=== PATIENT | female | born 1945 | race Two or more races ===

== ENCOUNTER 2018-06-26 07:08 | Inpatient (IN) | payer MEDICARE, MEDICAID ==
[2018-06-26] VITALS (11 sets, daily range): BP systolic 108–137; BP diastolic 65–90
[~2018-06-26] VITALS: Ht 154.9 cm; Wt 81.2 kg
[~2018-06-26 07:08] MED LIST: HYDR-4354 PO
--- NOTE | 2018-06-26 08:00 | NUR ---
MS RN NOTES PATIENT ADMITTED TO UNIT, ARRIVED AMBULATORY. AWAKE, ALERT AND ORIENTED X 4, VERBALLY RESPONSIVE AND RESPONDS TO VERBAL AND TACTILE STIMULI. BREATHING EVEN AND UNLABORED. NO CHANGES IN LOC NOTED. DENIES ANY PAIN OR DISCOMFORT. PATIENT FOR DAY SURGERY, FOR RIGHT KNEE ARTHROPLASTY WITH DR. BUSH. PATIENT VERBALIZED SHE HAS BEEN NPO SINCE LAST NIGHT. LAST BOWEL MOVEMENT LAST NIGHT. SKIN ASSESSMENT DONE, SKIN CLEAR, NO SKIN BREAKDOWN NOTED. VERIFIED INFORM CONSENT OBTAINED BY MD FROM PATIENT AND WITNESSED BY LICENSED STAFF. WILL CONTINUE TO MONITOR
[2018-06-26] MEDS ORDERED: TRANEXAMIC ACID 3,000 MG in SODIUM CHLORIDE IRRIG SOLUTION 70 ML IR ONE (08:30)
--- NOTE | 2018-06-26 08:30 | NUR ---
MS RN NOTES PATIENT WITH PRE-OP ORDERS FROM DR. BUSH, INCLUDING TYLENOL 650MG, OXYCODONE 10MG, CELEBREX 200MG. TO BE TAKEN PO WITH SMALL SIP OF WATER AFTER CONSENTS ARE GIVEN AND SIGNED. ORDERS NOTED AND CARRIED OUT. PATIENT AWARE AND VERBALIZED UNDERSTANDING. WILL CONTINUE TO MONITOR
--- NOTE | 2018-06-26 09:00 | NUR ---
MS RN NOTES LFA g22, WITH GOOD BLOOD BACKFLOW, SECURED WITH TAGADERM. FLUSHING WELL. WILL CONTINUE TO MONITOR
[2018-06-26] MEDS ORDERED: FESO4TAB PO (09:15)
[2018-06-26] MEDS ORDERED: LEVO50TA8 PO (09:15)
[2018-06-26] MEDS ORDERED: CELECOXIB 100 MG CAPSULE PO ONE (09:30)
[2018-06-26] MEDS ORDERED: oxyCODONE IR immediate release 5 MG PO ONE (09:30)
[2018-06-26] MEDS ORDERED: ACETAMINOPHEN 325 MG TABLET PO ONE (09:30)
[2018-06-26 10:22] LABS: BASOPHILS # (AUTO) 0.1 /CMM (0.0-0.2); BASOPHILS % (AUTO) 1.4 % (0.0-2.0); EOSINOPHILS % (AUTO) 7.9 % (0.0-6.0); HEMATOCRIT 37 % (33-45); HEMOGLOBIN 12.9 g/dL (11.5-14.8); LYMPHOCYTES # (AUTO) 2.8 /CMM (0.8-4.8); LYMPHOCYTES % (AUTO) 45.1 % (20.0-44.0); MEAN CORPUSCULAR HGB CONC 34 g/dl (31.0-36.0); MEAN CORPUSCULAR VOLUME 95 fL (82-100); MONOCYTES # (AUTO) 0.6 /CMM (0.1-1.30); MONOCYTES % (AUTO) 9.1 % (2.0-12.0); NEUTROPHILS # (AUTO) 2.3 /CMM (1.8-8.9); NEUTROPHILS % (AUTO) 36.5 % (43.0-81.0); PLATELET COUNT (AUTO) 353 /CMM (150-450); RED BLOOD CELL COUNT(AUTO) 3.95 MIL/uL (4.0-5.2); WHITE BLOOD COUNT (AUTO) 6.2 K/uL (4.3-11.0)
[2018-06-26 10:32] LABS: ALANINE AMINOTRANSFERASE 27 U/L (12-78); ALBUMIN 3.8 g/dL (3.4-5.0); ALKALINE PHOSPHATASE 79 U/L (46-116); ASPARTATE AMINOTRANSFERASE 19 U/L (15-37); BILIRUBIN,TOTAL 0.5 mg/dL (0.2-1.0); CALCIUM, SERUM 9.3 mg/dL (8.5-10.1); CARBON DIOXIDE 30 mmol/L (21-32); CHLORIDE 106 mmol/L (98-107); CREATININE 0.8 mg/dL (0.6-1.3); GLUCOSE 95 mg/dL (74-106); POTASSIUM 4.2 mmol/L (3.5-5.1); SODIUM SERUM 143 mmol/L (136-145); TOTAL PROTEIN, SERUM 7.6 g/dL (6.4-8.2); UREA NITROGEN, BLOOD 17 mg/dL (7-18)
[2018-06-26] MEDS ORDERED: CLINDAMYCIN 900 MG/6 ML VIAL ONE (10:46)
[2018-06-26] MEDS ORDERED: BUPIVACAINE 0.5 % PF 150 MG/30 ML VIAL ONE (12:12)
[2018-06-26] MEDS ORDERED: HYDROMORPHONE INJ 2 MG/ML DISP.SYRIN ONE ×2 (12:54→13:44)
[2018-06-26] MEDS ORDERED: MIDAZOLAM HCL 2 MG/2ML VIAL ONE (14:00)
[2018-06-26] MEDS ORDERED: HYDROCODONE/APAP 5/325MG 1 EACH TABLET PO PRN ×2 (14:30→17:00)
[2018-06-26] MEDS ORDERED: SENNOSIDES 8.6 MG TABLET PO PRN (14:30)
[2018-06-26] MEDS ORDERED: DOCUSATE SODIUM 250 MG CAPSULE PO PRN (14:30)
[2018-06-26] MEDS ORDERED: HYDROMORPHONE 1 MG/1 ML DISP.SYRIN IV PRN (14:30)
[2018-06-26] MEDS ORDERED: ANCEF 1 GM/50 ML D5W IV SCH ×2 (14:30)
[2018-06-26] MEDS ORDERED: ACETAMINOPHEN 325 MG TABLET PO PRN ×2 (14:30→17:00)
[2018-06-26] MEDS ORDERED: IV LR 1000 ML 1,000 ML IV PRN (14:30)
[2018-06-26] MEDS ORDERED: BISACODYL SUPP (10 MG) 10 MG/SUPP.RECT SUPP.RECT RC PRN ×2 (14:30→15:30)
[2018-06-26] MEDS ORDERED: ZOLPIDEM TARTRATE 5 MG TABLET PO PRN ×2 (14:30→17:00)
--- NOTE | 2018-06-26 15:10 | NUR ---
RN NOTES PATIENT CAME BACK TO UNIT AT 1500, REPORT RECEIVED FROM EDNA GODDARD. PATIENT AWAKE, ALERT AND ORIENTED X 4, SLEEPY, NO CHANGES IN LOC NOTED AT THIS TIME. SCD PUMPS IN PLACE. IV INTACT AND PATENT. PATIENT TO BE UNDER TELEMETRY AND CONTINUOUS PULSE OX X 24 HOURS. ORDER NOTED AND CARRIED OUT. SEMICONDUCTOR PACKAGES SEALER PLACED, NSR 70'S. O2 SAT 100% IN 2L/MIN VIA NC. WILL CONTINUE TO MONITOR. BED LOCKED AND IN LOW POSITION. BILATERAL UPPER SIDE RAILS UP AND LOCKED. CALL LIGHT WITHIN EASY REACH
--- NOTE | 2018-06-26 15:22 | NUR ---
MS RN NOTES MD MADE AWARE OF PATIENT ARRIVAL TO UNIT.
[2018-06-26] MEDS ORDERED: MAG HYDROX/AL HYDROX/SIMETH 30 ML UDC PO PRN ×2 (15:30→17:00)
[2018-06-26] MEDS ORDERED: diphenhydrAMINE HCL 25 MG CAPSULE PO PRN (15:30)
[2018-06-26] MEDS ORDERED: ONDANSETRON HCL/PF 4 MG/2 ML VIAL IV PRN (15:30)
[2018-06-26] MEDS ORDERED: CLONIDINE HCL 0.1 MG TABLET PO PRN (15:30)
[2018-06-26] MEDS ORDERED: HYDROMORPHONE 1 MG/1 ML DISP.SYRIN SQ PRN (15:30)
[2018-06-26] MEDS ORDERED: BUTALB/APAP/CAFFEINE 1 EACH TABLET PO PRN (15:30)
[2018-06-26] MEDS ORDERED: MENTHOL/CETYLPYRD (CEPACOL) 1 LOZ LOZENGE PO PRN (15:30)
[2018-06-26] MEDS: HYDROMORPHONE 1 MG/1 ML DISP.SYRIN SQ PRN ×2 (15:35→20:29)
--- NOTE | 2018-06-26 15:46 | NUR ---
MS RN NOTES PATIENT WITH C/O PAIN LEVEL OF 7/10 ON RIGHT KNEE. PRIOR TO GIVING NORCO 10/325, DR. GONSALVES CAME AND SEEN PATIENT. WITH NEW ORDERS FOR DILAUDID 0.[address] GONSALVES MADE AWARE OF NORCO ADMINISTRATION AND DR. GONSALVES VERBALIZED TO HOLD NORCO FOR NOW AND GIVE DILAUDID 0.5 MG SQ, MAY GIVE NORCO AFTER 1 HOUR IF PAIN PERSISTS. DR. GONSALVES MADE AWARE THAT PATIENT HAD DILAUDID APPROXIMATELY [address] GONSALVES VERBALIZED THAT ITS OK FOR PATIENT TO HAVE DILAUDID NOW. DILAUDID ADMINISTERED ORDERED. WILL CONTINUE TO MONITOR
[2018-06-26] MEDS ORDERED: ONDANSETRON HCL/PF 4 MG/2 ML VIAL IVP PRN (17:00)
[2018-06-26] MEDS ORDERED: Z GUARD REMEDY 2 OZ OINT TP PRN (17:00)
[2018-06-26] MEDS ORDERED: MAGNESIUM HYDROXIDE 30 ML UDC PO PRN (17:00)
[2018-06-26] MEDS: CLINDAMYCIN 600 MG in IV D5W 50 ML IV SCH (17:18)
[2018-06-26] MEDS: DOCUSATE SODIUM 100 MG CAPSULE PO SCH (17:18)
[2018-06-26] MEDS: SENNOSIDES 8.6 MG TABLET PO SCH (17:18)
[2018-06-26] MEDS: HYDROCODONE/APAP 10/325MG 1 EA TABLET PO PRN ×2 (17:31→22:31)
--- NOTE | 2018-06-26 18:56 | NUR ---
CHEMICAL PROCESSING EQUIPMENT REPAIRER NOTES PATIENT RESTING INSIDE ROOM. SLEEPING, EASILY AROUSABLE THROUGH VERBAL AND TACTILE STIMULI. NO CHANGES IN LOC NOTED AT THIS TIME. PATIENT CALM AND RELAXED. IV INTACT AND PATENT. RLE DRESSING IN PLACE, NO BLEEDING NOTED AT THIS TIME. WILL ENDORSE TO INCOMING SHIFT FOR NASIM. BED LOCKED AND IN LOW POSITION. BILATERAL UPPER SIDE RAILS UP AND LOCKED. CALL LIGHT WITHIN EASY REACH
--- NOTE | 2018-06-26 19:30 | NUR ---
RECEIVED PATIENT IN BED AWAKE, AO X 3, ABLE TO MAKE NEEDS KNOWN. NO ACUTE DISTRESS NOTED. MONITORED FOR PAIN. TELE READING SR WITH PAC HR 73. RIGHT KNEE IMMOBILIZER IN PLACE. IV SITE PATENT, INTACT; FLUSHED. SAFETY REMINDERS GIVEN. ON LOW BED WITH BILATERAL UPPER SIDE RAILS UP. CALL OLGUIN WITHIN EASY REACH. WILL CONTINUE TO MONITOR.
[2018-06-26] MEDS: FAMOTIDINE (20 MG) 20 MG TABLET PO SCH (20:29)
[2018-06-26] MEDS ORDERED: LEVOTHYROXINE SODIUM 50 MCG TABLET PO SCH (22:00)
[2018-06-27] VITALS (7 sets, daily range): BP systolic 102–118; BP diastolic 57–73
[2018-06-27] MEDS: CLINDAMYCIN 600 MG in IV D5W 50 ML IV SCH ×2 (00:04→05:31)
[2018-06-27] MEDS: HYDROMORPHONE 1 MG/1 ML DISP.SYRIN SQ PRN ×6 (00:09→22:37)
[2018-06-27] MEDS: HYDROCODONE/APAP 10/325MG 1 EA TABLET PO PRN ×2 (05:31→14:52)
--- NOTE | 2018-06-27 06:19 | NUR ---
PATIENT ASLEEP, EASILY AROUSABLE. RESPIRATIONS EVEN. NO SIGNS OF PAIN NOTED. DUE MED GIVEN WITH NO ASE NOTED. KEPT CLEAN, DRY, AND COMFORTABLE. NEEDS ATTENDED. SAFETY PRECAUTIONS AND COMFORT MEASURES IN PLACE. WILL GIVE REPORT TO DAY SHIFT FOR CONTINUITY OF CARE.
--- NOTE | 2018-06-27 06:20 | NUR ---
PER DR. GONSALVES, GIAN DILAUDID 1 MG SQ, NOTED AND CARRIED OUT.
--- NOTE | 2018-06-27 07:30 | NUR ---
TOBACCO SCRAP SIFTER OPENING NOTE RECEIVED PT IN BED, RESTING WITH EYES CLOSED AND EASILY AROUSABLE. PT IS A/OX4, DENIES CHEST PAIN, SOB, N/V. PT RATES PAIN IN THE RIGHT KNEE AT 10/10 AT THIS TIME BUT "GOING DOWN SLOWLY". DRESSING IS CLEAN, DRY AND INTACT W/ KNEE IMMOBILIZER IN PLACE. PT DENIES CHANGES IN SENSATION OR PRESENCE OF NUMBNESS, PT ABLE TO WIGGLE TOES. BREATHING IS EVEN AND UNLABORED ON 2L NC, PT IS ON PROFESSOR OF ENVIRONMENTAL SCIENCE WITH SR W/ PACS, HR: 81. LEFT FA #22G IV IS PATENT, CLEAN, DRY AND INTACT, PT REFUSING IV FLUIDS AT THIS TIME AND STATES SHE WILL INCREASE HER PO INTAKE. RISKS AND BENEFITS EXPLAINED. PT STILL DECLINED. ALL NEEDS ATTENDED TO. BED IS LOCKED AND IN LOWEST POSITION, SIDE RAILS UP X2, CALL LIGHT AND POSSESSIONS WITHIN REACH.
[2018-06-27 08:01] LABS: BASOPHILS % (AUTO) 0.3 % (0.0-2.0); HEMATOCRIT 32 % (33-45); HEMOGLOBIN 10.8 g/dL (11.5-14.8); LYMPHOCYTES # (AUTO) 1.4 /CMM (0.8-4.8); LYMPHOCYTES % (AUTO) 14.8 % (20.0-44.0); MEAN CORPUSCULAR HGB CONC 34 g/dl (31.0-36.0); MEAN CORPUSCULAR VOLUME 96 fL (82-100); MONOCYTES % (AUTO) 9.9 % (2.0-12.0); NEUTROPHILS # (AUTO) 7.3 /CMM (1.8-8.9); PLATELET COUNT (AUTO) 297 /CMM (150-450); WHITE BLOOD COUNT (AUTO) 9.7 K/uL (4.3-11.0)
[2018-06-27 08:17] LABS: CHOLESTEROL 162 mg/dL (<200); HDL CHOLESTEROL 56 mg/dL (40-60); LDL 99 mg/dL (0-99); TRIGLYCERIDES 91 mg/dL (30-150)
[2018-06-27] MEDS: ASPIRIN 325 MG TABLET PO SCH (08:17)
[2018-06-27] MEDS: LEVOTHYROXINE SODIUM 50 MCG TABLET PO SCH (08:17)
[2018-06-27] MEDS: SENNOSIDES 8.6 MG TABLET PO SCH ×2 (08:17→16:16)
[2018-06-27] MEDS: FAMOTIDINE (20 MG) 20 MG TABLET PO SCH ×2 (08:17→21:00)
[2018-06-27] MEDS: DOCUSATE SODIUM 100 MG CAPSULE PO SCH ×2 (08:17→16:16)
--- NOTE | 2018-06-27 08:17 | NUR ---
LEAD SIMULATION MODELING ENGINEER NOTE INCENTIVE SPIROMETER PLACED AT THE BEDSIDE. EDUCATION PROVIDED UTILIZING TEACH BACK METHOD. PT DEMONSTRATED AND VERBALIZED UNDERSTANDING.
[2018-06-27 08:24] LABS: CALCIUM, SERUM 8.7 mg/dL (8.5-10.1); CARBON DIOXIDE 30 mmol/L (21-32); CHLORIDE 103 mmol/L (98-107); CREATININE 0.7 mg/dL (0.6-1.3); GLUCOSE 112 mg/dL (74-106); MAGNESIUM 1.9 mg/dL (1.8-2.4); PHOSPHORUS 3.9 mg/dL (2.5-4.9); POTASSIUM 4.6 mmol/L (3.5-5.1); SODIUM SERUM 140 mmol/L (136-145); UREA NITROGEN, BLOOD 16 mg/dL (7-18)
--- NOTE | 2018-06-27 11:45 | NUR ---
MS RN NOTE DR. GONSALVES AND PRABHA CHAVEZ AT THE BEDSIDE. DR. GONSALVES REVIEWED MEDICATION USE WITH PATIENT, INCLUDING ALTERNATING BETWEEN DILAUDID SUBQ AND PO NORCO ORDERED. RISKS OF OVER SEDATION AND DECREASED RESPIRATORY FUNCTION WELL MANAGEMENT OF PAIN UTILIZING NON-PHARMACOLOGIC METHODS DISCUSSED WITH PT. THE NURSE DISCUSSED ALTERNATING BETWEEN THE TWO MEDICATIONS AND UTILIZATION OF DILAUDID FOR SEVERE OR BREAKTHROUGH PAIN ONLY. THE PT VERBALIZED UNDERSTANDING.
--- NOTE | 2018-06-27 11:50 | NUR ---
MS RN NOTE PER PRABHA COLUNGA PT ONLY NEED TO WEAR KNEE IMMOBILIZER WHEN AMBULATING OR WHEN SLEEPING AT NIGHT TO PREVEN LEG BENDING.
--- NOTE | 2018-06-27 15:37 | NUR ---
MS RN NOTE CALLED AT [phone] REGARDING PT REQUEST FOR ADDITIONAL PAIN MANAGEMENT OPTIONS. LEFT VOICEMAIL WITH CALL BACK INFORMATION, AWAITING RESPONSE.
--- NOTE | 2018-06-27 16:03 | NUR ---
MS RN NOTE SPOKE WITH DR. GONSALVES VIA TELEPHONE AND INFORMED OF PT C/O OF PAIN IN THE RIGHT KNEE RATED 8/10 AFTER NORCO 10/325MG ADMINISTRATION AT 1452 AND DILAUDID 0.5MG ADMINISTRATION AT 1352. ALSO INFORMED THAT PT IS TEARY AND ANXIOUS AT THIS TIME. PER , HE WILL CALL PHARMACY TO PLACE ORDERS.
[2018-06-27] MEDS: OXYBUTYNIN CHLORIDE 5 MG TABLET PO SCH (16:16)
[2018-06-27] MEDS ORDERED: LORAZEPAM 0.5 MG TABLET PO ONE (16:30)
--- NOTE | 2018-06-27 18:40 | NUR ---
MS RN CLOSING NOTE PT IN BED, RESTING WITH EYES CLOSED AND EASILY AROUSABLE. PT IS A/OX4, DENIES CHEST PAIN, SOB, N/V. PT MEDICATED WITH DILAUDID 0.5 MG SUBQ @ 1807 FOR PAIN IN THE RIGHT KNEE ORDERED. DRESSING IS CLEAN, DRY AND INTACT W/ KNEE IMMOBILIZER AND ICE BAGS IN PLACE. NEUROVASCULAR STATUS AT BASELINE. BREATHING IS EVEN AND UNLABORED ON 3L NC. LEFT FA #22G IV IS PATENT, CLEAN, DRY AND INTACT, PT REFUSING IV FLUIDS AT THIS TIME AND STATES SHE WILL INCREASE HER PO INTAKE. RISKS AND BENEFITS EXPLAINED. PT STILL DECLINED FOR THE DURATION OF THE SHIFT. ADLS PROVIDED AND PT ASSISTED TO TURN AND REPOSITION Q2H FOR THE DURATION OF THE SHIFT. SCDS IN PLACE, INCENTIVE SPIROMETER AT THE BEDSIDE. PT UP WITH PT X2 TODAY AND TOLERATED APPROXIMATELY 45MINS OF CMP X2. CONTINUOUS PULSE OX IN PLACE. ALL NEEDS ATTENDED TO. BED IS LOCKED AND IN LOWEST POSITION, SIDE RAILS UP X2, CALL LIGHT AND POSSESSIONS WITHIN REACH.WILL ENDORSE TO SHAREPOINT ADMIN NURSE FOR CONTINUITY OF CARE.
--- NOTE | 2018-06-27 19:30 | NUR ---
RECEIVED PATIENT IN BED AWAKE, AO X 3, ABLE TO MAKE NEEDS KNOWN. NO ACUTE DISTRESS NOTED. MONITORED FOR PAIN. RIGHT KNEE IMMOBILIZER IN PLACE. IV SITE PATENT, INTACT; FLUSHED. SAFETY REMINDERS GIVEN. ON LOW BED WITH BILATERAL UPPER SIDE RAILS UP. CALL OLGUIN WITHIN EASY REACH. WILL CONTINUE TO MONITOR. FAMILY AT BEDSIDE.
[2018-06-27] MEDS ORDERED: LORAZEPAM 1 MG TABLET PO PRN (23:00)
[2018-06-27] MEDS ORDERED: LORAZEPAM 0.5 MG TABLET PO PRN (23:59)
[2018-06-28] MEDS: HYDROMORPHONE 1 MG/1 ML DISP.SYRIN SQ PRN ×2 (02:01→06:06)
--- NOTE | 2018-06-28 07:30 | NUR ---
MS RN OPENING NOTES RECEIVED PATIENT IN STABLE CONDITION. IN NO APPARENT DISTRESS. BEDSIDE RAILS ARE UPX2. BED IS LOCKED AND LOWERED. CALL LIGHT IS WITHIN REACH. IV LINE IS INTACT AND PATENT. WILL CONTINUE TO MONITOR PATIENT.
[2018-06-28 07:53] LABS: BASOPHILS # (AUTO) 0.1 /CMM (0.0-0.2); BASOPHILS % (AUTO) 0.7 % (0.0-2.0); EOSINOPHILS % (AUTO) 0.4 % (0.0-6.0); HEMATOCRIT 28 % (33-45); HEMOGLOBIN 9.7 g/dL (11.5-14.8); LYMPHOCYTES # (AUTO) 1.5 /CMM (0.8-4.8); LYMPHOCYTES % (AUTO) 15.5 % (20.0-44.0); MEAN CORPUSCULAR HGB CONC 34 g/dl (31.0-36.0); MEAN CORPUSCULAR VOLUME 95 fL (82-100); MONOCYTES # (AUTO) 1.3 /CMM (0.1-1.30); MONOCYTES % (AUTO) 12.6 % (2.0-12.0); NEUTROPHILS % (AUTO) 70.8 % (43.0-81.0); PLATELET COUNT (AUTO) 255 /CMM (150-450); RED BLOOD CELL COUNT(AUTO) 2.95 MIL/uL (4.0-5.2); WHITE BLOOD COUNT (AUTO) 9.9 K/uL (4.3-11.0)
[2018-06-28] MEDS: SENNOSIDES 8.6 MG TABLET PO SCH (08:10)
[2018-06-28] MEDS: ASPIRIN 325 MG TABLET PO SCH (08:10)
[2018-06-28] MEDS: OXYBUTYNIN CHLORIDE 5 MG TABLET PO SCH (08:11)
[2018-06-28] MEDS: FAMOTIDINE (20 MG) 20 MG TABLET PO SCH (08:11)
[2018-06-28] MEDS: LEVOTHYROXINE SODIUM 50 MCG TABLET PO SCH (08:11)
[2018-06-28] MEDS: DOCUSATE SODIUM 100 MG CAPSULE PO SCH (08:11)
[2018-06-28 08:25] LABS: CALCIUM, SERUM 8.6 mg/dL (8.5-10.1); CARBON DIOXIDE 29 mmol/L (21-32); CHLORIDE 101 mmol/L (98-107); CREATININE 0.7 mg/dL (0.6-1.3); GLUCOSE 109 mg/dL (74-106); SODIUM SERUM 138 mmol/L (136-145); UREA NITROGEN, BLOOD 13 mg/dL (7-18)
[2018-06-28] MEDS ORDERED: ASPI-992 PO (09:47)
[2018-06-28] MEDS: HYDROCODONE/APAP 10/325MG 1 EA TABLET PO PRN (13:15)
--- NOTE | 2018-06-28 14:00 | NUR ---
MS SPANISH LECTURER NOTES PATIENT DISCHARGED IN STABLE CONDITION. IN NO APPARENT DISTRESS. EXITCARE WAS SIGNED AND PROVIDED TO [facility]. IV LINE AND ID BAND WERE REMOVED. BELONGINGS WERE CHECKED AND PROVIDED TO THE PATIENT. MEDICATION RECONCILIATION FORM IS INCLUDED WITH PATIENTS DISCHARGE PAPERWORK. REPORT GIVEN TO CONCHITA GODDARD. ALL NEEDS WERE MET. PATIENT ESCORTED OUT OF THE FACILITY VIA AMBULANCE BY EMT.
== END 2018-06-28 16:19 | DRG 470 ==
LOC: DS 07:08 → MED 07:49 → TELE 16:34 → MED 06-27 11:17
PROVIDERS: ADMIT Family Medicine; ATTEND Family Medicine
PROC: 0SRC0J9 Replacement of Right Knee Joint with Synthetic Substitute, Cemented, Open Approach (ICD-10-PCS; principal; 2018-06-26)
DX: M17.11 Unilateral primary osteoarthritis, right knee (principal); I10 Essential (primary) hypertension; E03.9 Hypothyroidism, unspecified; E66.9 Obesity, unspecified; G47.33 Obstructive sleep apnea (adult) (pediatric); N32.81 Overactive bladder; H40.9 Unspecified glaucoma; D62 Acute posthemorrhagic anemia; D64.9 Anemia, unspecified; R32 Unspecified urinary incontinence; Z68.33 Body mass index [BMI] 33.0-33.9, adult; Z90.710 Acquired absence of both cervix and uterus; Z90.49 Acquired absence of other specified parts of digestive tract
CPT/HCPCS: 36415; 80048-TC; 80053-TC; 80061-TC; 83735-TC; 84100-TC; 85025-TC; 85730-TC; 86850-TC; 87081-TC; 88305-TC; 88311-TC; 97110-TC; 97116-TC; 97530-TC; 97760-TC; A4217; A6402; C1713; G0378; J0690; J1100; J1170; J2250; J2405; J2704; J3490; J7060; L1830

== ENCOUNTER 2019-10-22 15:03 | Emergency (ER) | payer MEDICARE, OTHER ==
[~2019-10-22] VITALS: Ht 154.9 cm; Wt 84.8 kg
[~2019-10-22 15:03] MED LIST changes: +ASPI-992 PO; +FESO4TAB PO; +LEVO50TA8 PO
--- NOTE | 2019-10-22 15:15 | NUR ---
PT BIB FAMILY TO ED BED 06 C/O RECTAL PAIN, PRESSURE. STATES HAD NO TO LITTLE BM X 10+ DAYS S/P GETTING ENEMA. PT HAD A A SPINAL SURGERY 2 WEEKS AGO. AAOX3 AWAITNG MD KENNEDY.
--- NOTE | 2019-10-22 15:20 | NUR ---
DR NARVAEZ AT BEDSIDE FOR EVAL.
--- NOTE | 2019-10-22 15:25 | NUR ---
IV LINE STARTED BLOOD DRAWN AND SENT TO LAB.
[2019-10-22] MEDS ORDERED: IV NS 0.9% 1,000 ML BAG IV ONE (15:30)
[2019-10-22] MEDS ORDERED: KETOROLAC TROMETHAMINE INJ 30 MG/ML VIAL IV ONE (15:30)
[2019-10-22] MEDS ORDERED: ONDANSETRON HCL/PF 4 MG/2 ML VIAL IVP ONE (15:30)
[2019-10-22] MEDS ORDERED: FAMOTIDINE/PF INJ 20 MG/2 ML VIAL IV ONE ×2 (15:30→15:31)
[2019-10-22] MEDS ORDERED: KETOROLAC TROMETHAMINE 15 MG/ML VIAL ONE (15:31)
[2019-10-22] MEDS ORDERED: ONDANSETRON HCL/PF 4 MG/2 ML VIAL ONE ×2 (15:31→16:47)
[2019-10-22 15:47] LABS: BASOPHILS # (AUTO) 0.1 /CMM (0.0-0.2); BASOPHILS % (AUTO) 0.6 % (0.0-2.0); EOSINOPHILS % (AUTO) 0.1 % (0.0-6.0); HEMATOCRIT 34 % (33-45); HEMOGLOBIN 10.8 g/dL (11.5-14.8); LYMPHOCYTES # (AUTO) 0.8 /CMM (0.8-4.8); LYMPHOCYTES % (AUTO) 7.5 % (20.0-44.0); MEAN CORPUSCULAR HGB CONC 32 g/dl (31.0-36.0); MEAN CORPUSCULAR VOLUME 94 fL (82-100); MONOCYTES # (AUTO) 0.7 /CMM (0.1-1.30); MONOCYTES % (AUTO) 6.7 % (2.0-12.0); NEUTROPHILS # (AUTO) 8.5 /CMM (1.8-8.9); NEUTROPHILS % (AUTO) 85.1 % (43.0-81.0); PLATELET COUNT (AUTO) 676 /CMM (150-450); RED BLOOD CELL COUNT(AUTO) 3.59 MIL/uL (4.0-5.2)
[2019-10-22] MEDS ORDERED: IOHEXOL-300 100 ML VIAL IV ONE (16:00)
[2019-10-22] MEDS ORDERED: IV NS 0.9% 250 ML IV ONE (16:00)
[2019-10-22 16:10] LABS: CALCIUM, SERUM 9.8 mg/dL (8.5-10.1); CREATININE 0.9 mg/dL (0.6-1.3); POTASSIUM 3.9 mmol/L (3.5-5.1)
[2019-10-22 16:18] LABS: ALBUMIN 3.2 g/dL (3.4-5.0); BILIRUBIN,DIRECT 0.3 mg/dL (0.0-0.2); BILIRUBIN,TOTAL 0.5 mg/dL (0.2-1.0); TOTAL PROTEIN, SERUM 7.9 g/dL (6.4-8.2)
--- NOTE | 2019-10-22 16:27 | NUR ---
PT TO RADIOLOGY FOR ABDOMINAL CT SCAN VIA [facility].
[2019-10-22] MEDS ORDERED: LACTULOSE 10 G/15 ML UDC (PYXIS) ONE (16:47)
[2019-10-22] MEDS ORDERED: HYDROMORPHONE 1 MG/1 ML DISP.SYRIN ONE (16:48)
[2019-10-22] MEDS ORDERED: LACTULOSE 10 G/15 ML UDC (PYXIS) PO ONE (17:00)
[2019-10-22] MEDS ORDERED: ONDANSETRON HCL/PF - ER 4 MG/2 ML VIAL IV ONE (17:00)
[2019-10-22] MEDS ORDERED: HYDROMORPHONE 1 MG/1 ML DISP.SYRIN IV ONE (17:00)
--- NOTE | 2019-10-22 18:47 | NUR ---
CALLED JON SHAH (DAUGHTER) TO SPORTS DOCTOR PATIENT. WILL BE ABLE TO SPORTS DOCTOR PATIENT WITHIN THE HOUR DEPENDING ON TRAFFIC.
--- NOTE | 2019-10-22 19:12 | NUR ---
REPORT TO PAYROLL MACHINE OPERATOR NURSE ADE GODDARD FOR NASIM.
--- NOTE | 2019-10-22 19:59 | NUR ---
Patient discharged to home in stable condition. Written and verbal after care instructions given. Patient verbalizes understanding of instruction.
[2019-10-22 20:00] VITALS: BP 106/74
== END 2019-10-22 20:00 | disposition home or self-care (01) ==
LOC: ER 15:03
DX: K62.89 Other specified diseases of anus and rectum (principal); K59.00 Constipation, unspecified; I48.91 Unspecified atrial fibrillation; I10 Essential (primary) hypertension; E78.5 Hyperlipidemia, unspecified; Z98.890 Other specified postprocedural states; Z88.0 Allergy status to penicillin; Z88.1 Allergy status to other antibiotic agents; Z88.8 Allergy status to other drugs, medicaments and biological substances; Z79.82 Long term (current) use of aspirin; Z79.899 Other long term (current) drug therapy
CPT/HCPCS: 36415; 74177; 80048; 80076; 83690; 85025; 85730; 96374; 96375; 96376; 99285; J1170; J1885; J2405 ×3; J3490; J7030; J7050; Q9967

== ENCOUNTER 2019-10-27 14:06 | Outpatient (CLI) | payer MEDICARE, OTHER ==
[2019-10-27] MEDS ORDERED: FAMO20TA29 MT (15:43)
[2019-10-27] MEDS ORDERED: ROSU5TAB13 MT (15:43)
[2019-10-27] MEDS ORDERED: LINA145C MT (15:43)
[2019-10-27] MEDS ORDERED: APIX5TAB MT (15:43)
[2019-10-27] MEDS ORDERED: OLME5TAB6 MT (15:43)
[2019-10-27] MEDS ORDERED: OXYC5TAB3 MT (15:43)
[2019-10-27] MEDS ORDERED: ATOR20TA PO (15:43)
[2019-10-27] MEDS ORDERED: ICOS1CAP MT (15:43)
[2019-10-27] MEDS ORDERED: LISI-607 MT (15:43)
[2019-10-27] MEDS ORDERED: OXYB5TAB16 MT (15:43)
[2019-10-31] MEDS ORDERED: SENN-261 PO (13:07)
[2019-10-31] MEDS ORDERED: POLY17PO4 PO (13:07)
[2019-10-31] MEDS ORDERED: DOCU-270 PO (13:07)
[2019-10-31] MEDS ORDERED: HYDR25SU13 RC (13:07)
[2019-10-31] MEDS ORDERED: VALS40TA4 PO (13:07)
== END 2019-10-27 23:59 | disposition home or self-care (01) ==
LOC: MSC 14:06
PROVIDERS: ATTEND Internal Medicine
DX: R10.9 Unspecified abdominal pain (principal); K62.89 Other specified diseases of anus and rectum; R19.7 Diarrhea, unspecified; M19.90 Unspecified osteoarthritis, unspecified site; M96.1 Postlaminectomy syndrome, not elsewhere classified; E03.9 Hypothyroidism, unspecified; I10 Essential (primary) hypertension; D64.89 Other specified anemias; Z87.09 Personal history of other diseases of the respiratory system; Z79.891 Long term (current) use of opiate analgesic; Z79.82 Long term (current) use of aspirin; Z79.899 Other long term (current) drug therapy

== ENCOUNTER 2019-10-27 14:53 | Inpatient (IN) | payer MEDICARE, OTHER ==
[~2019-10-27] VITALS: Ht 157.5 cm; Wt 84.8 kg
--- NOTE | 2019-10-27 14:55 | NUR ---
PT BIBPA FROM HOME C/O RECTAL PAIN AND DIARRHEA SINCE SUNDAY, PT IS AAOX4, NOT IN RESPIRATORY DISTRESS, HOOKED TO GALLERY OR MUSEUM TECHNICIAN. KEPT RESTED AND COMFORTABLE. WILL CONTINUE TO MONITOR.
--- NOTE | 2019-10-27 15:20 | NUR ---
SEEN AND EXAMINED BY .
--- NOTE | 2019-10-27 15:25 | NUR ---
IV LINE ESTABLISHED BLOOD DRAWN AND SENT TO LAB.
[2019-10-27 15:34] LABS: BASOPHILS # (AUTO) 0.1 /CMM (0.0-0.2); EOSINOPHILS % (AUTO) 3.2 % (0.0-6.0); HEMATOCRIT 36 % (33-45); HEMOGLOBIN 11.9 g/dL (11.5-14.8); LYMPHOCYTES # (AUTO) 1.5 /CMM (0.8-4.8); LYMPHOCYTES % (AUTO) 16.2 % (20.0-44.0); MEAN CORPUSCULAR HGB CONC 33 g/dl (31.0-36.0); MEAN CORPUSCULAR VOLUME 93 fL (82-100); MONOCYTES # (AUTO) 0.9 /CMM (0.1-1.30); MONOCYTES % (AUTO) 9.8 % (2.0-12.0); NEUTROPHILS # (AUTO) 6.4 /CMM (1.8-8.9); NEUTROPHILS % (AUTO) 69.8 % (43.0-81.0); PLATELET COUNT (AUTO) 620 /CMM (150-450); WHITE BLOOD COUNT (AUTO) 9.2 K/uL (4.3-11.0)
[2019-10-27] MEDS ORDERED: OXYB5TAB16 MT (15:43)
[2019-10-27] MEDS ORDERED: ATOR20TA PO (15:43)
[2019-10-27] MEDS ORDERED: LINA145C MT (15:43)
[2019-10-27] MEDS ORDERED: OXYC5TAB3 MT (15:43)
[2019-10-27] MEDS ORDERED: APIX5TAB MT (15:43)
[2019-10-27] MEDS ORDERED: LISI-607 MT (15:43)
[2019-10-27] MEDS ORDERED: FAMO20TA29 MT (15:43)
[2019-10-27] MEDS ORDERED: OLME5TAB6 MT (15:43)
[2019-10-27] MEDS ORDERED: ICOS1CAP MT (15:43)
[2019-10-27] MEDS ORDERED: ROSU5TAB13 MT (15:43)
[2019-10-27] MEDS ORDERED: FENTANYL PF 100MCG/2ML AMPUL ONE (15:44)
[2019-10-27 15:55] LABS: CALCIUM, SERUM 9.4 mg/dL (8.5-10.1); POTASSIUM 3.7 mmol/L (3.5-5.1)
[2019-10-27 16:00] LABS: ALBUMIN 3.4 g/dL (3.4-5.0); BILIRUBIN,DIRECT 0.2 mg/dL (0.0-0.2); BILIRUBIN,TOTAL 0.6 mg/dL (0.2-1.0); TOTAL PROTEIN, SERUM 7.7 g/dL (6.4-8.2)
[2019-10-27] MEDS ORDERED: IV NS 0.9% 500 ML BAG IV ONE (16:00)
[2019-10-27] MEDS ORDERED: FENTANYL PF 100MCG/2ML AMPUL IV ONE (16:00)
--- NOTE | 2019-10-27 16:25 | NUR ---
PT URINE SPECIMEN COLLECTED AND SENT TO LAB.
--- NOTE | 2019-10-27 16:27 | NUR ---
NURSING SUP GAVE [id number].
--- NOTE | 2019-10-27 16:29 | NUR ---
HOMICIDE SQUAD COMMANDING OFFICER AT BEDSIDE FOR XRAY.
[2019-10-27] MEDS ORDERED: Z GUARD REMEDY 2 OZ OINT TP PRN (16:30)
[2019-10-27] MEDS ORDERED: ACETAMINOPHEN 325 MG TABLET PO PRN (16:30)
[2019-10-27] MEDS ORDERED: ONDANSETRON HCL/PF 4 MG/2 ML VIAL IVP PRN (16:30)
[2019-10-27] MEDS ORDERED: MAGNESIUM HYDROXIDE 30 ML UDC PO PRN (16:30)
[2019-10-27] MEDS: HEPARIN SODIUM, PORCINE 5000 UNITS/1 ML VIAL SQ SCH (16:30)
[2019-10-27 16:31] LABS: APPEARANCE,URINE Clear (CLEAR); BILIRUBIN,URINE SMALL (NEGATIVE); BLOOD, URINE Trace-intact Ery/uL (NEGATIVE); COLOR,URINE Yellow (YELLOW); KETONES,URINE Negative (NEGATIVE); LEUKOCYTE ESTERASE ,URINE Negative (NEGATIVE); NITRITE, URINE Negative (NEGATIVE); PROTEIN,URINE Negative (NEGATIVE); UGLUCOSE Negative (NEGATIVE)
--- NOTE | 2019-10-27 16:40 | NUR ---
REPORT GIVEN TO RN LANIE FOR NASIM.
[2019-10-27 16:43] LABS: BACTERIA,URINE Few /HPF (None Seen); SQUAMOUS EPITHELIAL CELL,UR Few /HPF (None Seen); WBC,URINE 0-2 /HPF (0-3)
[2019-10-27 17:45] VITALS: BP 121/68
[2019-10-27] MEDS ORDERED: SENNOSIDES/DOCUSATE SODIUM 1 TAB TABLET PO PRN (18:30)
[2019-10-27] MEDS: SORBITOL SOLUTION 30 ML PO SCH (18:40)
[2019-10-27] MEDS: LACTULOSE 10 G/15 ML UDC (PYXIS) PO SCH (18:40)
--- NOTE | 2019-10-27 18:42 | NUR ---
rn notes patient remains on room air, no sob noted, wound scars on the fron stomach, back, medications given and patient is constipated. Photos taken and is in the chart. Bed at the lowest setting, call light within reach, side rails up x2.
[2019-10-27] MEDS: POLYETHYLENE GLYCOL 3350 17 GM POWD.PACK PO SCH ×2 (19:00→21:39)
[2019-10-27] MEDS ORDERED: MORPHINE SULFATE INJ 2 MG/ML DISP.SYRIN IV ONE (19:00)
[2019-10-27 19:30] VITALS: BP 125/52
--- NOTE | 2019-10-27 19:41 | NUR ---
MS RN NOTES PATIENT IN BED, AWAKE, ALERT AND ORIENTED X 4. BREATHING EVEN AND UNLABORED ON ROOM AIR. SHOWS NO SIGNS OF ACUTE RESPIRATORY DISTRESS, NO ACUTE PAIN. IV ON RAC 18G ITS CLEAN DRY AND INTACT. SHOWS NO SIGNS OF INFILTRATION, NO REDNESS. SAFETY PRECAUTIONS IN PLACE. BED IN LOWEST POSITION, LOCKED, AND CALL LIGHT KEPT WITHIN REACH. WILL CONTINUE TO MONITOR.
[2019-10-27 20:00] VITALS: BP 135/65
[2019-10-27] MEDS: HYDROCODONE/APAP 5/325MG 1 EACH TABLET PO PRN (23:17)
--- NOTE | 2019-10-27 23:17 | NUR ---
MS RN NOTES PATIENT COMPLAINING OF RECTAL PAIN. GIVEN PRN NORCO AT 2317, VITAL SIGNS WNL. WILL CONTINUE TO MONITOR.
--- NOTE | 2019-10-27 23:34 | NUR ---
MS GODDARD NOTES JANNIE ORDERED COVID19 SWAB FOR PT BECAUSE OF LOW GRADE FEVER. ORDER SWAB AND WILL FOLLOW THROUGH. Addendum: 10/27/19 at 2335 by TONYA LITTLE RN WRONG PT
[2019-10-28] MEDS: HYDROCODONE/APAP 5/325MG 1 EACH TABLET PO PRN ×5 (04:31→21:33)
[2019-10-28] MEDS: HEPARIN SODIUM, PORCINE 5000 UNITS/1 ML VIAL SQ SCH ×2 (04:32→16:55)
[2019-10-28] MEDS: LACTULOSE 10 G/15 ML UDC (PYXIS) PO SCH ×4 (05:34→17:32)
--- NOTE | 2019-10-28 05:34 | NUR ---
MS RN NOTES DID NOT ADMINISTER LACTULOSE, PT HAS HAD 4 LIQUID STOOL THROUGHOUT SHIFT.
--- NOTE | 2019-10-28 06:36 | NUR ---
MS RN NOTES PATIENT IN BED, ASLEEP, ALERT AND ORIENTED X 4. BREATHING EVEN AND UNLABORED ON ROOM AIR. SHOWS NO SIGNS OF ACUTE RESPIRATORY DISTRESS, NO ACUTE PAIN. IV ON RAC 18G ITS CLEAN DRY AND INTACT. SHOWS NO SIGNS OF INFILTRATION, NO REDNESS. ALL DUE MEDICATIONS GIVEN. SAFETY PRECAUTIONS IN PLACE. BED IN LOWEST POSITION, LOCKED, AND CALL LIGHT KEPT WITHIN REACH. WILL ENDORSE TO ONCOMING NURSE.
[2019-10-28 07:36] LABS: BASOPHILS # (AUTO) 0.1 /CMM (0.0-0.2); BASOPHILS % (AUTO) 0.8 % (0.0-2.0); EOSINOPHILS % (AUTO) 1.1 % (0.0-6.0); HEMATOCRIT 34 % (33-45); HEMOGLOBIN 11.2 g/dL (11.5-14.8); LYMPHOCYTES # (AUTO) 1.1 /CMM (0.8-4.8); LYMPHOCYTES % (AUTO) 12.8 % (20.0-44.0); MEAN CORPUSCULAR HGB CONC 33 g/dl (31.0-36.0); MEAN CORPUSCULAR VOLUME 93 fL (82-100); MONOCYTES # (AUTO) 0.8 /CMM (0.1-1.30); NEUTROPHILS # (AUTO) 6.3 /CMM (1.8-8.9); NEUTROPHILS % (AUTO) 75.3 % (43.0-81.0); PLATELET COUNT (AUTO) 523 /CMM (150-450); RED BLOOD CELL COUNT(AUTO) 3.69 MIL/uL (4.0-5.2); WHITE BLOOD COUNT (AUTO) 8.4 K/uL (4.3-11.0)
[2019-10-28 07:52] LABS: CALCIUM, SERUM 9.1 mg/dL (8.5-10.1); CREATININE 0.7 mg/dL (0.6-1.3); MAGNESIUM 2.1 mg/dL (1.8-2.4); PHOSPHORUS 3.5 mg/dL (2.5-4.9); POTASSIUM 3.6 mmol/L (3.5-5.1)
[2019-10-28 08:00] VITALS: BP 116/66
[2019-10-28] MEDS: SORBITOL SOLUTION 30 ML PO SCH (08:55)
--- NOTE | 2019-10-28 08:58 | NUR ---
received pt. awake and alert.vs stable,crying with pain,given norco as per orders.dr. bernstein in and aware of pain level.
--- NOTE | 2019-10-28 09:30 | NUR ---
DR. DUARTE IN AND DC'Elida DUMONT
--- NOTE | 2019-10-28 10:30 | NUR ---
family member callinf=g in to check on pt.
--- NOTE | 2019-10-28 11:00 | NUR ---
call out to dr. bernstein regarding rectal discomfort,additionally asking about gi consult.states he will review chart for findings as to cause of pain.
--- NOTE | 2019-10-28 11:00 | NUR ---
VOIDED POST REMOVAL OF HERRERA.
--- NOTE | 2019-10-28 12:30 | NUR ---
PHYSICAL TX IN AND PT. REFUSING TO GET UP FOR EVAL. Addendum: 10/28/19 at 1509 by JAMES GUSMAN RN ABOVE NOTE ON INCORRECT PT.
[2019-10-28] MEDS: DOCUSATE SODIUM 100 MG CAPSULE PO SCH ×2 (13:16→16:54)
--- NOTE | 2019-10-28 15:14 | NUR ---
MEDICATED X 2 THUS FAR THIS SHIFT WITH NORCO AND X1 WITH TYLENOL 650 MG.PO.
[2019-10-28 16:00] VITALS: BP 118/69
[2019-10-28] MEDS: HYDROCORTISONE ACETATE 25 MG/SUPP.RECT SUPP.RECT RC SCH (18:46)
--- NOTE | 2019-10-28 19:10 | NUR ---
RN MS OPENING NOTES RECEIVED PATIENT IN BED AWAKE ALERT AND ORIENTED X4, RESPIRATIONS EVEN AND UNLABORED WITH EQUAL RISE AND FALL OF CHEST, AT THIS TIME DENIES ANY PAIN OR DISCOMFORT, SAFETY PRECAUTIONS IN PLACE, LOW BED AND LOCKED, ORIENTED TO STAFF AND CALL LIGHT AND KEPT WITHIN REACH, IV SITE TO RIGHT AC #18G INTACT AND PATENT, NO REDNESS, NO INFILTRATION PRESENT, ALL NEEDS ATTENDED AT THIS TIME, WILL CONTINUE TO MONITOR AND ATTEND TO NEEDS, FLUIDS OFFERED. WILL CONTINUE TO MONITOR AND ATTEND TO NEEDS.
[2019-10-28 20:00] VITALS: BP 131/65
[2019-10-28] MEDS: POLYETHYLENE GLYCOL 3350 17 GM POWD.PACK PO SCH (21:11)
[2019-10-28] MEDS: SENNOSIDES 8.6 MG TABLET PO SCH (21:11)
--- NOTE | 2019-10-28 21:33 | NUR ---
RN MS NOTES PATIENT COMPLAINED OF PAIN TO RECTUM AREA AND ABDOMEN AREA,12/24. REQUESTED FOR NORCO. VS WNL, NORCO PRN GIVEN ORDERED AND REQUESTED FLUIDS PROVIDED, SNACK PROVIDED APPLESAUCE, REPOSITIONED, PERINEAL CARE PROVIDED ,CLEANED AND LIGHTS DIMMED WILL CONTINUE TO MONITOR FOR EFFECTIVENESS.
--- NOTE | 2019-10-28 22:00 | NUR ---
rn ms notes patient refused senna and miralax x3 ,states " im pooping too much". explained risks and benefits.
[2019-10-28] MEDS: ZOLPIDEM TARTRATE 5 MG TABLET PO PRN (22:32)
--- NOTE | 2019-10-28 22:32 | NUR ---
RN MS NOTES PATIENT REQUESTED FOR SLEEP MEDICATION. AMBIEN PRN OFFERED, PATIENT AGREED TO HAVE. AMBIEN PRN GIVEN ORDERED, LIGHTS DIMMED, WILL CONTINUE TO MONITOR FOR EFFECTIVENESS.
--- NOTE | 2019-10-29 00:09 | NUR ---
RN MS NOTES PATIENT REFUSED LACTULOSE, STATES " I HAVE BEEN POOPING SO MUCH, I WANT TO SLEEP IT MAKES ME GO". STATES SHE WILL TAKE THE AM ONE. REFUSED DESPITE EDUCATION, WILL CONTINUE TO MONITOR.
[2019-10-29] MEDS: HYDROCODONE/APAP 5/325MG 1 EACH TABLET PO PRN ×3 (01:59→22:38)
--- NOTE | 2019-10-29 02:02 | NUR ---
RN MS NOTES PATIENT COMPLAINED OF PAIN TO RECTUM AREA 11/23. REQUESTED FOR NORCO.MADE PATIENT AWARE RISK OF CONSTIPATION, VERBALIZES SHE UNDERSTANDS. VS WNL, NORCO PRN GIVEN ORDERED AND REQUESTED FLUIDS PROVIDED, REPOSITIONED, PERINEAL CARE PROVIDED ,CLEANED AND LIGHTS DIMMED WILL CONTINUE TO MONITOR FOR EFFECTIVENESS.
[2019-10-29] MEDS: LACTULOSE 10 G/15 ML UDC (PYXIS) PO SCH ×4 (05:09→17:24)
[2019-10-29] MEDS: HEPARIN SODIUM, PORCINE 5000 UNITS/1 ML VIAL SQ SCH (05:11)
[2019-10-29] MEDS: HYDROCORTISONE ACETATE 25 MG/SUPP.RECT SUPP.RECT RC SCH ×2 (05:45→18:00)
--- NOTE | 2019-10-29 05:45 | NUR ---
rn ms notes patient refused scheduled anusol, states " it makes her rectum hurt more" explained benefits and refused.
--- NOTE | 2019-10-29 06:33 | NUR ---
RN MS CLOSING NOTES PATIENT IN BED AWAKE ALERT AND ORIENTED X4, RESPIRATIONS EVEN AND UNLABORED WITH EQUAL RISE AND FALL OF CHEST, AT THIS TIME DENIES ANY PAIN OR DISCOMFORT, SAFETY PRECAUTIONS IN PLACE, LOW BED AND LOCKED, CALL LIGHT KEPT WITHIN REACH, IV SITE TO RIGHT AC #18G INTACT AND PATENT, NO REDNESS, NO INFILTRATION PRESENT, ALL NEEDS ATTENDED AT THIS TIME, WILL CONTINUE TO MONITOR AND ATTEND TO NEEDS, FLUIDS OFFERED. WILL CONTINUE TO MONITOR AND ENDORSE TO NEXT SHIFT.
--- NOTE | 2019-10-29 07:30 | NUR ---
MS/RN OPENING NOTES Received patient resting in bed, A&O x4. Breathing even and non-labored on RA, no respiratory distress noted. No cardiac distress noted. IV access noted on R AC # 18 saline locked, patent and intact, and flushing well. No s/s of infiltration/infection noted. Sensation from all peripheral extremities noted. Fall precautions maintained. Will continue with current medical management.
[2019-10-29 08:00] VITALS: BP 108/65
[2019-10-29] MEDS: DOCUSATE SODIUM 100 MG CAPSULE PO SCH ×3 (08:14→17:25)
[2019-10-29] MEDS ORDERED: NA PHOS,M-B/NA PHOS,DI-BA 1 EA ENEMA RC ONE (08:42)
[2019-10-29] MEDS ORDERED: NA PHOS,M-B/NA PHOS,DI-BA 1 EA ENEMA RC PRN (09:00)
--- NOTE | 2019-10-29 09:00 | NUR ---
MS/RN NOTES Administered enema to relieve fecal impaction. Patient feels more relieved and is now resting in bed. Will continue to monitor for any changes in condition.
--- NOTE | 2019-10-29 09:00 | NUR ---
MS/RN NOTES Dr. Kessler at bedside, scheduled colonoscopy at 7am on Sunday (11/01/19), states that he will put in order. Patient remains on clear liquid diet. Will continue to monitor patient for any changes in condition. Addendum: 10/29/19 at 1210 by DAXA YANEZ RN CORRECTION: COLONOSCOPY SCHEDULED ON SUNDAY (10/31/19) AT 7AM
[2019-10-29] MEDS ORDERED: PEG 3350/NA SULF,BICARB,CL/KCL 4,000 ML BOTTLE PO ONE (10:00)
[2019-10-29 12:18] VITALS: BP 116/67
--- NOTE | 2019-10-29 15:15 | NUR ---
MS/RN NOTES Patient's daughter, Shonda, brought linzess (home medication) for the patient. After receiving, sent to the pharmacy right away.
[2019-10-29 16:00] VITALS: BP 113/60
[2019-10-29] MEDS ORDERED: Medication Not On Formulary EA (Olmesartan Medoxomil 1 TAB) MT SCH (17:00)
[2019-10-29] MEDS: OXYBUTYNIN CHLORIDE 5 MG TABLET PO SCH (17:25)
[2019-10-29] MEDS: FAMOTIDINE (20 MG) 20 MG TABLET PO SCH (17:25)
[2019-10-29] MEDS: APIXABAN 5 MG TABLET PO SCH (17:26)
--- NOTE | 2019-10-29 17:38 | NUR ---
MS/RN NOTES Patient refused hydrocortisone suppository because her "rectum is too painful." Also refused lactulose because she states "I'm pooping too much it hurts."
--- NOTE | 2019-10-29 19:27 | NUR ---
MS/RN OPENING NOTES Patient resting in bed, A&O x4. Still reports abdominal and rectum discomfort. Had BM x 3 today. Started Voxli @ 1700 for colonoscopy prep on sunday, 0700. Breathing even and non-labored on RA, no respiratory distress noted. No cardiac distress noted. No s/s of infiltration/infection noted. Sensation from all peripheral extremities noted. Fall precautions maintained. Patient pulled out IV, attempted to place three times. Will endorse to cage shift manager nurse.
--- NOTE | 2019-10-29 19:30 | NUR ---
CORRECTION: MS GODDARD CLOSING NOTES BELOW
--- NOTE | 2019-10-29 19:32 | NUR ---
RN NOTES RECEIVED PATIENT IN BED, ALERT ORIENTED X4. COMPLAINS OF TOLERABLE DISCOMFORT AROUND HER ABDOMINAL AND RECTAL AREA. AM NURSE STARTED GOLYTELY AT 1700 FOR COLONOSCOPY PREP ON SUNDAY AT 0700 PER REPORT. NO SIGNS OF ACUTE CARDIAC OR RESPIRATORY DISTRESS, BREATHING EVEN AND UNLABORED. SAFETY MEASURES IN PLACED, BED IN LOW LOCKED POSITION SIDE RAILS UP X3 ASPIRATION PRECAUTION EMPHASIZED. CALL LIGHT WITH IN EASY REACH.PATIENT PULLED OUT IV ACCESS, REFUSED FOR RE INSERTION AT THIS TIME, WILL FOLLOW UP. AM NURSE ATTEMPTED TO RE INSERT IV ACCESS X3. ALL NEEDS ANTICIPATED. WILL CONTINUE TO MONITOR ACCORDINGLY.
[2019-10-29 20:00] VITALS: BP 115/70
[2019-10-29] MEDS: POLYETHYLENE GLYCOL 3350 17 GM POWD.PACK PO SCH (22:00)
[2019-10-29] MEDS: SENNOSIDES 8.6 MG TABLET PO SCH (22:00)
--- NOTE | 2019-10-30 01:00 | NUR ---
RN MS CONTINUITY OF CARE NOTES RECEIVED PATIENT IN BE AWAKE, ALERT AND ORIENTED X4, ABLE TO MAKE NEEDS KNOWN RESPIRATIONS EVEN AND UNLABORED WITH EQUAL RISE AND FALL OF CHEST AT THIS TIME COMPLAINING OF PAIN TO RECTUM AREA, PREVIOUS NURSE ADMINISTERED OXY IR ORDERED, GAVE ICE PACK REQUESTED BY PT, WILL CONTINUE TO MONITOR FOR EFFECTIVENESS, RIGHT UPPER ARM IV SITE #22G SL NO REDNESS, NO INFILTRATION, ORIENTED TO STAFF AND CALL LIGHT AND KEPT WITHIN REACH, ALL NEEDS ATTENDED AT THIS TIME, ENCOURAGED GOLYTELY ORDERED, WILL CONTINUE TO ATTEND TO NEEDS, SAFETY PRECAUTIONS IN PLACE, LOW BED AND LOCKED.
[2019-10-30] MEDS: oxyCODONE IR immediate release 5 MG PO PRN ×2 (01:26→14:51)
--- NOTE | 2019-10-30 01:32 | NUR ---
RN NOTES REPORT GIVEN TO NITZA PANDYA FOR NASIM.
[2019-10-30] MEDS: ZOLPIDEM TARTRATE 5 MG TABLET PO PRN ×2 (02:26→23:27)
--- NOTE | 2019-10-30 02:26 | NUR ---
RN MS NOTES PATIENT REASSESSED NOTED STILL IN DISCOMFORT. UNABLE TO SCALE AT THIS TIME, MOANS AND FACIAL GRIMACING PRESENT, BASED ON HERNANDEZ LOERA APPEARS PAIN RATE 6/10, SCD'S APPLIED AND WARM BLANKET PROVIDED, PATIENT STATES " I HAVENT GOTTEN ANY SLEEP PLEASE LORD". PATIENT REQUESTED FOR SLEEP MEDICATION VS TAKEN STABLE 118/63,96,94%RA, 18. AMBIEN PRN GIVEN ORDERED. WILL CONTINUE TO MONITOR FOR EFFECTIVENESS, LIGHTS DIMMED.
[2019-10-30] MEDS: LACTULOSE 10 G/15 ML UDC (PYXIS) PO SCH ×5 (05:13→23:27)
[2019-10-30] MEDS: HYDROCORTISONE ACETATE 25 MG/SUPP.RECT SUPP.RECT RC SCH ×2 (05:46→18:53)
--- NOTE | 2019-10-30 05:47 | NUR ---
rn ms notes patient refused scheduled suppository Anusol. states " that makes her rectum hurt more". explained benefits, refused x3.
--- NOTE | 2019-10-30 06:54 | NUR ---
RN MS CLOSING PATIENT IN BE AWAKE, ALERT AND ORIENTED X4, ABLE TO MAKE NEEDS KNOWN RESPIRATIONS EVEN AND UNLABORED WITH EQUAL RISE AND FALL OF CHEST AT THIS TIME, AT THIS TIME REMAINS COMFORTABLE STATES " IM GOING TO TRY TO GET MORE SLEEP" ELIDIAIEN WAS EFFECTIVE PATIENT SLEPT WELL, SCDS IN PLACE REQUESTED BY PATIENT, RIGHT UPPER ARM IV SITE #22G SL NO REDNESS, NO INFILTRATION,CALL LIGHT KEPT WITHIN REACH, ALL NEEDS ATTENDED AT THIS TIME, CHANGED LINENS AND GOWN PROVIDED FREQUENTLY , PROVIDED FREQUENT PERINEAL CARE AND APPLIED BARRIER CREAM TO BUTTOCKS FOR SKIN MANAGEMENT,ENCOURAGED GOLYTELY ORDERED, WILL CONTINUE TO ATTEND TO NEEDS, SAFETY PRECAUTIONS IN PLACE, LOW BED AND LOCKED WILL ENDORSE TO NEXT SHIFT.
--- NOTE | 2019-10-30 06:59 | NUR ---
RN MS NOTES PATIENT CONSTANTLY HAS LOOSE BOWEL MOVEMENTS, NOTED REDNESS, EXCORIATION TO MID BUTTOCKS, WOUND CARE CONSULT PLACE, ZGUARD APPLIED.
[2019-10-30 08:00] VITALS: BP 105/63
--- NOTE | 2019-10-30 08:00 | NUR ---
RN NOTES RECEIVED PATIENT IN THE BED A/O X3, WAS COMPLAINING OF PAIN RECTAL AREA, PATIENT AMBULATED WITH ASSIST, AND GETTING PREPARING FOR COLONOSCOPE FOR TOMORROW, REDNESS RECTAL AREA, CLEAR LIQUID DIET. NEEDS ATTENDED AND ANTICIPATED, ADMINISTERED SCHEDULED MEDICATION. V/S TAKEN STABLE. PATIENT TURN AND REPOSTION SELF IN THE BED. CALL LIGHT WITHIN TO REACH.
[2019-10-30] MEDS: FAMOTIDINE (20 MG) 20 MG TABLET PO SCH ×2 (08:53→18:46)
[2019-10-30] MEDS: OXYBUTYNIN CHLORIDE 5 MG TABLET PO SCH ×2 (08:53→18:46)
[2019-10-30] MEDS: ATORVASTATIN 10 MG TABLET PO SCH (08:53)
[2019-10-30] MEDS: LISINOPRIL (5MG) 5 MG TABLET PO SCH (08:53)
[2019-10-30] MEDS: VALSARTAN 40 MG TABLET PO SCH (08:53)
[2019-10-30] MEDS: DOCUSATE SODIUM 100 MG CAPSULE PO SCH ×3 (08:53→18:46)
[2019-10-30] MEDS: APIXABAN 5 MG TABLET PO SCH ×2 (08:54→18:47)
[2019-10-30] MEDS: LEVOTHYROXINE SODIUM 50 MCG TABLET PO SCH (08:59)
[2019-10-30] MEDS: HYDROCODONE/APAP 5/325MG 1 EACH TABLET PO PRN ×2 (09:00→18:55)
--- NOTE | 2019-10-30 09:00 | NUR ---
RN NOTES ADMINISTERED NARCO 5/325 MG PO PRN FOR RECTAL AREA 09/23 PEER PATIENT REQUEST, V/S TAKEN BP 110/65, P-105, R-19.
[2019-10-30] MEDS: LINZESS 145MCG CAPSULE PO SCH (09:02)
--- NOTE | 2019-10-30 14:51 | NUR ---
RN NOTES ADMINISTERED OXY IR 5 /325 MG PO PRB FOR PAIN 11/23 PER PATIENT REQUEST, V/S TAKEN BP 110/78,P-76. ALSO ENCOURAGED PATIENT TO FINISH GOLYTELY, PATIENT SCHEDULED COLONOSCOPY TOMORROW.
--- NOTE | 2019-10-30 15:40 | NUR ---
R NOTES COVED TESTING ANTIGEN DONE, RESULT IS NEGATIVE.
[2019-10-30 16:00] VITALS: BP 91/51
--- NOTE | 2019-10-30 18:55 | NUR ---
RN NOTES ADMINISTERED NARCO 5/325 MG PO PRN, AND SCHEDULED MEDICATION, V/S WNL. PATIENT REFUSED LUNCH, AND DINNER, PATIENT TURN AND REPOSTION SELF IN THE BED. PATIENT WILL BE NPO MIDNIGHT BECAUSE OF PROCEDURE, AND FINISH GOLYTELY . CALL LIGHT WITHIN TO REACH. ENDORSED ONCOMING NURSE FOLLOW PLAN OF CARE.
--- NOTE | 2019-10-30 19:45 | NUR ---
RN NOTES RECEIVED PATIENT IN BED, ALERT ORIENTED X4. COMPLAINS OF TOLERABLE DISCOMFORT AROUND HER ABDOMINAL AND RECTAL AREA. FOR COLONOSCOPY TOMORROW 10/31/19 AT 0700 ORDERED. NO SIGNS OF ACUTE CARDIAC OR RESPIRATORY DISTRESS, BREATHING EVEN AND UNLABORED. SAFETY MEASURES IN PLACED, BED IN LOW LOCKED POSITION SIDE RAILS UP X3 ASPIRATION PRECAUTION EMPHASIZED. PERIPHERAL IV LINE INTACT AND PATENT.CALL LIGHT WITH IN EASY REACH. ALL NEEDS ANTICIPATED. WILL CONTINUE TO MONITOR ACCORDINGLY.
[2019-10-30 20:00] VITALS: BP 91/41
[2019-10-30] MEDS ORDERED: oxyCODONE IR immediate release 5 MG PO PRN (21:00)
[2019-10-30] MEDS: POLYETHYLENE GLYCOL 3350 17 GM POWD.PACK PO SCH (22:05)
[2019-10-30] MEDS: SENNOSIDES 8.6 MG TABLET PO SCH (22:05)
--- NOTE | 2019-10-31 00:04 | NUR ---
RN NOTES REPORT GIVEN TO NITZA SUMNER FOR NASIM.
--- NOTE | 2019-10-31 00:05 | NUR ---
MS RN NOTES RECEIVED PT FROM TIAN FOR NASIM. WILL CONTINUE TO MONITOR.
--- NOTE | 2019-10-31 03:45 | NUR ---
MS RN NOTES FINISHED TAP WATER ENEMA, WATER FLOWING IS STILL BROWN. EXPLAINED TO PT ANOTHER WOULD NEED TO BE DONE, PT REFUSED. EXPLAINED TO PT BENEFITS, PT VERBALIZED UNDERSTANDING AND CONTINUE TO REFUSE. WILL CONTINUE TO MONITOR.
--- NOTE | 2019-10-31 05:44 | NUR ---
MS RN NOTES PT NOTED WITH PERIODS OF CONFUSION. CLEANED PT AFTER ENEMA AND PT FORGOT SHE HAD BEEN CLEAN. PT ALSO STATED "THAT WE LEFT HER IN HER ROOM," THIS IS AFTER WE HAD FINISHED THAT ENEMA AND SHE WAS GOING TO SLEEP. REORIENTED PT TO SITUATION, PT VERBALIZED UNDERSTANDING. WILL CONTINUE TO MONITOR.
[2019-10-31] MEDS: LACTULOSE 10 G/15 ML UDC (PYXIS) PO SCH ×2 (06:00→12:00)
[2019-10-31] MEDS ORDERED: ANESTHESIA TRAY IN PYXIS 1 EA TRAY MC ONE (06:26)
[2019-10-31] MEDS: HYDROCORTISONE ACETATE 25 MG/SUPP.RECT SUPP.RECT RC SCH (06:30)
--- NOTE | 2019-10-31 06:30 | NUR ---
MS RN NOTES PT LEFT UNIT WITH SX.
--- NOTE | 2019-10-31 07:15 | NUR ---
MS RN NOTES WILL ENDORSE TO ONCOMING NURSE FOR NASIM.
[2019-10-31 07:42] VITALS: BP 118/64
--- NOTE | 2019-10-31 07:42 | NUR ---
RECEIVED PT FROM O.R. S/P COLONOSCOPY WITH STABLE V/S. BP 118/64 HR 87 RR 20 T 99.5. PT IS COVERED WITH VERY THICK BLANKETS (3 OF THEM) SAYING SHE FEELS VERY COLD AND REFUSED TO HAVE THE BLANKET REMOVED AND CHANGED TO THIN COVER LINEN. ON REGULAR DIET. PT C/O MODERATE ADARSH FEET PAIN,.WILL GIVE PRN PAIN MED FOR PAIN MGT.CALL LIGHT PLACED WITHIN REACH.
[2019-10-31 08:00] VITALS: BP 128/71
[2019-10-31] MEDS: APIXABAN 5 MG TABLET PO SCH (08:22)
[2019-10-31] MEDS: FAMOTIDINE (20 MG) 20 MG TABLET PO SCH (08:23)
[2019-10-31] MEDS: LEVOTHYROXINE SODIUM 50 MCG TABLET PO SCH (08:23)
[2019-10-31] MEDS: LISINOPRIL (5MG) 5 MG TABLET PO SCH (08:23)
[2019-10-31] MEDS: OXYBUTYNIN CHLORIDE 5 MG TABLET PO SCH (08:23)
[2019-10-31] MEDS: DOCUSATE SODIUM 100 MG CAPSULE PO SCH ×2 (08:23→13:00)
[2019-10-31] MEDS: ATORVASTATIN 10 MG TABLET PO SCH (08:23)
[2019-10-31] MEDS: HYDROCODONE/APAP 5/325MG 1 EACH TABLET PO PRN (08:24)
[2019-10-31 08:53] VITALS: BP 128/71
[2019-10-31] MEDS: VALSARTAN 40 MG TABLET PO SCH (08:53)
[2019-10-31] MEDS ORDERED: HYDROCORTISONE ACETATE 25 MG/SUPP.RECT SUPP.RECT RC SCH (09:00)
[2019-10-31] MEDS: LINZESS 145MCG CAPSULE PO SCH (09:10)
--- NOTE | 2019-10-31 11:33 | NUR ---
WOUND CARE CONSULT: PT PRESENTS WITH INNER BUTTOCKS RASH. PT HAS BEEN HAVING FREQUENT STOOLS. RECOMMENDATIONS MADE FOR SKIN PROTECTION. DISCUSSED WITH NURSING STAFF. WILL SEE PRN. APTINO IN AGREEMENT WITH PLAN OF CARE. Addendum: 10/31/19 at 1134 by IVORY KOWALSKI WNDNU Amended: Links added.
[2019-10-31] MEDS ORDERED: VALS40TA4 PO (13:07)
[2019-10-31] MEDS ORDERED: SENN-261 PO (13:07)
[2019-10-31] MEDS ORDERED: POLY17PO4 PO (13:07)
[2019-10-31] MEDS ORDERED: DOCU-270 PO (13:07)
[2019-10-31] MEDS ORDERED: HYDR25SU13 RC (13:07)
--- NOTE | 2019-10-31 14:53 | NUR ---
DISCHARGED PT TO [facility] VIA AMBULANCE AND REPORT CALLED IN TO LEEANNERN SAYING THAT THE PT WILL BE IN ROOM 109 STATION 1. PT REFUSED TO HAVE HER ABDOMINAL SCAR AND BACK SCAR PHOTOS TO BE TAKEN BUT WAS ABLE TO TAKE PHOTO OF INNER BUTTOCKS RASH. IV H/L REMOVED TO RT AC WITH NO BLEEDING NOTED. LATEST TEMP TAKEN BY THE AMBULANCE WAS 98.3 VIA ORAL TEMP. WITH STABLE V/S.DENIES ANY DISTRESS.
[2019-10-31] MEDS ORDERED: CLOTRIMAZOLE 1% 15 GM TUBE TP SCH (17:00)
== END 2019-10-31 14:50 | DRG 394 ==
LOC: ER 14:55 → MED 16:34
PROVIDERS: ADMIT Nurse Practitioner Acute Care; ATTEND Internal Medicine
PROC: 0DJD8ZZ Inspection of Lower Intestinal Tract, Via Natural or Artificial Opening Endoscopic (ICD-10-PCS; principal; 2019-10-31)
DX: K62.6 Ulcer of anus and rectum (principal); E03.9 Hypothyroidism, unspecified; N32.81 Overactive bladder; E66.9 Obesity, unspecified; K62.5 Hemorrhage of anus and rectum; E78.5 Hyperlipidemia, unspecified; G47.33 Obstructive sleep apnea (adult) (pediatric); M19.90 Unspecified osteoarthritis, unspecified site; M81.0 Age-related osteoporosis without current pathological fracture; I10 Essential (primary) hypertension; Z79.82 Long term (current) use of aspirin; Z79.01 Long term (current) use of anticoagulants; Z96.653 Presence of artificial knee joint, bilateral; Z90.710 Acquired absence of both cervix and uterus; Z68.34 Body mass index [BMI] 34.0-34.9, adult; K57.30 Diverticulosis of large intestine without perforation or abscess without bleeding; I48.0 Paroxysmal atrial fibrillation; R19.09 Other intra-abdominal and pelvic swelling, mass and lump; K59.00 Constipation, unspecified
CPT/HCPCS: 36415; 71045-TC; 74018; 80048-TC; 80061-TC; 80076-TC; 81000-TC; 83690-TC; 83735-TC; 84100-TC; 85025-TC; 87081-TC; G0378; J1644; J2270; J2704; J3010; J7040; U0003-CS